=== PATIENT | female | born 1995 | race Caucasian/White ===

== ENCOUNTER → 2016-12-09 | Outpatient (REF) | payer OTHER ==
[~2016-12-09] MED LIST: TRAZ50TA4 PO; TRIL150T PO
== END ==
LOC: M LAB REF 13:39
PROVIDERS: ATTEND Advanced Practice Midwife
DX: O36.80X0 Pregnancy with inconclusive fetal viability, not applicable or unspecified (principal)

== ENCOUNTER 2017-02-08 19:19 | Emergency (ER) | payer OTHER ==
[~2017-02-08] VITALS: Ht 167.6 cm; Wt 81.6 kg
[2017-02-08] MEDS ORDERED: ZOLO50TA PO (19:33)
[2017-02-08] MEDS ORDERED: hydroxyzine PO (19:33)
[2017-02-08] MEDS ORDERED: TOPA100T8 PO (19:33)
[2017-02-08] MEDS ORDERED: NS 1,000 ML IV ONE (20:00)
[2017-02-08] MEDS ORDERED: IBUPROFEN 600 MG TAB PO ONE (20:00)
[2017-02-08 20:44] LABS: BASO % 0.1 % (0.0-1.0); EOS # 0.2 K/mm3 (0.0-0.50); EOS % 2.4 % (0.0-3.0); LARGE UNSTAINED CELL % 0.6 % (0.0-4.0); LYMPH # 0.7 K/mm3 (1.5-6.5); LYMPH % 9.7 % (24.0-44.0); MEAN CORPUSCULAR HEMOGLOBIN 28.4 pg (27.0-33.0); MEAN CORPUSCULAR HGB CONC 33.6 g/dl (32.0-36.5); MEAN CORPUSCULAR VOLUME 84.5 fl (80.0-96.0); MONO # 0.2 K/mm3 (0.0-0.8); MONO % 3.4 % (0.0-5.0); NEUTROPHILS # 5.9 K/mm3 (1.8-7.7); NEUTROPHILS % 83.7 % (36.0-66.0); PLATELET COUNT, AUTOMATED 255 k/mm3 (150-450); RED CELL DISTRIBUTION WIDTH 13.6 % (11.5-14.5)
[2017-02-08 21:03] LABS: CONTROL LINE HCG INT CTR LINE PRESENT; CONTROL LINE MONO INT CTR LINE PRESENT
[2017-02-08 21:12] LABS: ALBUMIN 3.4 GM/DL (3.2-5.2); ALBUMIN/GLOBULIN RATIO 1.26 (1.00-1.93); ALKALINE PHOSPHATASE 95 U/L (45-117); ALT/SGPT 20 U/L (12-78); ANION GAP 6 MEQ/L (8-16); AST/SGOT 13 U/L (15-37); BILIRUBIN,DIRECT 0.1 MG/DL (0.0-0.2); BILIRUBIN,TOTAL 0.4 MG/DL (0.2-1.0); BLOOD UREA NITROGEN 11 MG/DL (7-18); CALCIUM LEVEL 8.1 MG/DL (8.5-10.1); CARBON DIOXIDE LEVEL 26 MEQ/L (21-32); CHLORIDE LEVEL 105 MEQ/L (98-107); CREATININE FOR GFR 0.87 MG/DL (0.55-1.02); GLOMERULAR FILTRATION RATE > 60.0 (>60); GLUCOSE, FASTING 107 MG/DL (70-105); SODIUM LEVEL 137 MEQ/L (136-145); TOTAL PROTEIN 6.1 GM/DL (6.4-8.2)
[2017-02-08 21:32] VITALS: BP 105/65
== END 2017-02-08 21:33 | disposition home or self-care (01) ==
LOC: M ED 20:24
DX: M79.1 Myalgia (principal); K21.9 Gastro-esophageal reflux disease without esophagitis; F41.9 Anxiety disorder, unspecified; F31.9 Bipolar disorder, unspecified; Z79.899 Other long term (current) drug therapy

== ENCOUNTER 2017-08-02 12:37 | Emergency (ER) | payer OTHER ==
[~2017-08-02] VITALS: Ht 167.6 cm; Wt 73.2 kg
[~2017-08-02 12:37] MED LIST changes: +TOPA100T12 PO; +TRAZ50TA11 PO; -TRAZ50TA4 PO; +ZOLO50TA PO; +hydroxyzine PO
[2017-08-02 12:42] VITALS: BP 111/71
[2017-08-02] MEDS ORDERED: PRAZ2CAP PO (12:49)
[2017-08-02] MEDS ORDERED: LEVO0.1T PO (12:49)
[2017-08-02] MEDS ORDERED: LATU40TA PO (12:49)
[2017-08-02] MEDS ORDERED: TRAZ50TA11 PO (12:49)
[2017-08-02] MEDS ORDERED: LIDOCAINE 1% MDV 20ML VIAL As Ordered ONE (13:25)
[2017-08-02] MEDS ORDERED: cefTRIAXone SOD 250 MG VIAL (J0696) IM ONE (13:30)
[2017-08-02] MEDS ORDERED: AZITHROMYCIN 250 MG TAB PO ONE (13:30)
== END 2017-08-02 13:49 | disposition home or self-care (01) ==
LOC: M ED 12:37
DX: Z20.2 Contact with and (suspected) exposure to infections with a predominantly sexual mode of transmission (principal); Z79.899 Other long term (current) drug therapy
CPT/HCPCS: 87491; 87591; 96372; 99282; J0696

== ENCOUNTER 2017-10-03 18:33 | Emergency (ER) | payer OTHER ==
[~2017-10-03] VITALS: Ht 167.6 cm; Wt 90.9 kg
[2017-10-03 18:33] VITALS: BP 117/58
[~2017-10-03 18:33] MED LIST changes: +LATU40TA PO; +LEVO0.1T PO; +PRAZ2CAP PO
[2017-10-03] MEDS ORDERED: PERCOCET 5MG/325MG TAB PO ONE (19:30)
--- NOTE | 2017-10-03 20:50 | REPUSA ---
CLINICAL INFORMATION: Pain. TECHNIQUE: 4 views of the left foot. FINDINGS: The metatarsals remain aligned with the cuneiforms. There is no abnormal periosteal reaction. The isak nt spaces are preserved. No fracture is seen. The subtalar joints appear normal. The navicular and cu boid bones are intact as well. The soft tissues appear unremarkable. IMPRESSION: No fracture or significant abnormality is identified.
--- NOTE | 2017-10-03 20:50 | REPUSA ---
Clinical history: Pain. Findings: 4 views of the left tibia and fibula were obtained. The osseous structures are intact, with out evidence of fracture or dislocation. The soft tissues are within normal limits. Impression: No acute findings.
--- NOTE | 2017-10-03 20:50 | REPUSA ---
CLINICAL INFORMATION: Pain. TECHNIQUE: left ankle, 4 views. FINDINGS: The osseous structures do not demonstrate any fractures or dislocations. The ankle mortise is intact. The osseous alignment is normal. The visualized portions of the tarsal bones and hindfoot are within normal limits. The soft tissues are within normal limits. IMPRESSION: No acute abnormality.
[2017-10-03] MEDS ORDERED: NORCO 5/325MG TABLET (BULK FOR ED) PO ONE (21:15)
== END 2017-10-03 21:28 | disposition home or self-care (01) ==
LOC: M ED 19:39
DX: S90.02XA Contusion of left ankle, initial encounter (principal); Z72.0 Tobacco use; W00.0XXA Fall on same level due to ice and snow, initial encounter; Y92.099 Unspecified place in other non-institutional residence as the place of occurrence of the external cause; Y93.01 Activity, walking, marching and hiking; Y99.9 Unspecified external cause status

== ENCOUNTER 2019-08-01 10:26 | Emergency (ER) | payer OTHER, SELFPAY ==
[~2019-08-01] VITALS: Ht 167.6 cm; Wt 72.6 kg
[~2019-08-01 10:26] MED LIST changes: +TRAZ-252 PO; -TRAZ50TA11 PO
[2019-08-01 10:27] VITALS: BP 113/73
[2019-08-01] MEDS ORDERED: WELLTAB38 PO (10:33)
[2019-08-01] MEDS ORDERED: TRIL150T PO (10:34)
[2019-08-01] MEDS ORDERED: AUGM875T28 PO ×2 (10:49→10:51)
== END 2019-08-01 11:03 | disposition home or self-care (01) ==
LOC: M ED 10:26
DX: H66.91 Otitis media, unspecified, right ear (principal); Z79.899 Other long term (current) drug therapy

== ENCOUNTER 2019-08-28 22:59 | Emergency (ER) | payer MEDICAID, OTHER, SELFPAY ==
[~2019-08-28] VITALS: Ht 167.6 cm; Wt 75.1 kg
[~2019-08-28 22:59] MED LIST changes: +AUGM875T28 PO; +WELLTAB38 PO
[2019-08-28] MEDS ORDERED: QC A650T3 PO (23:10)
[2019-08-29 00:27] LABS: BASO % 0.4 % (0.0-1.0); EOS # 0.1 10^3/uL (0.0-0.5); EOS % 2.2 % (0.0-3.0); HEMATOCRIT 39.5 % (36.0-47.0); HEMOGLOBIN 12.7 g/dl (12.0-15.5); LYMPH # 1.6 10^3/uL (1.5-5.0); LYMPH % 31.7 % (24.0-44.0); MEAN CORPUSCULAR HEMOGLOBIN 28.8 pg (27.0-33.0); MEAN CORPUSCULAR HGB CONC 32.2 g/dl (32.0-36.5); MEAN CORPUSCULAR VOLUME 89.6 fl (80.0-96.0); MONO # 0.4 10^3/uL (0.0-0.8); MONO % 7.1 % (0.0-5.0); NEUTROPHILS # 2.9 10^3/uL (1.5-8.5); NEUTROPHILS % 58.4 % (36.0-66.0); PLATELET COUNT, AUTOMATED 211 10^3/uL (150-450); RED BLOOD COUNT 4.41 10^6/uL (4.00-5.40); WHITE BLOOD COUNT 4.9 10^3/uL (4.0-10.0)
[2019-08-29 00:42] LABS: ALBUMIN 3.1 GM/DL (3.2-5.2); ALT/SGPT 15 U/L (12-78); BILIRUBIN,DIRECT 0.1 MG/DL (0.0-0.2); BILIRUBIN,TOTAL 0.5 MG/DL (0.2-1.0); BLOOD UREA NITROGEN 10 MG/DL (7-18); CALCIUM LEVEL 8.2 MG/DL (8.5-10.1); CARBON DIOXIDE LEVEL 26 MEQ/L (21-32); CHLORIDE LEVEL 109 MEQ/L (98-107); CREATININE FOR GFR 0.89 MG/DL (0.55-1.30); GLOMERULAR FILTRATION RATE > 60.0 (>60); GLUCOSE, FASTING 93 MG/DL (70-100); LIPASE 78 U/L (73-393); POTASSIUM SERUM 3.6 MEQ/L (3.5-5.1); SODIUM LEVEL 140 MEQ/L (136-145); TOTAL PROTEIN 5.8 GM/DL (6.4-8.2)
[2019-08-29] MEDS ORDERED: KETOROLAC 30 MG/ML VIAL (J1885) IV ONE (00:45)
[2019-08-29] MEDS ORDERED: ISOVUE-370 76% 100ML VIAL (Q9967) As Ordered ONE (00:48)
--- NOTE | 2019-08-29 01:17 | REPVR ---
PROCEDURE INFORMATION: Exam: CT Abdomen And Pelvis With Contrast Exam date and time: 08/29/2019 12:44 AM Clinical history: 24 years old, female; Abdominal pain; Localized; Right lower quadrant (rlq); Additional info: Rlq pain, R/O appendicitis TECHNIQUE: Imaging protocol: Computed tomography of the abdomen and pelvis with intravenous contrast. Radiation optimization: All CT scans at this facility use at least one of these dose optimization techniques: automated exposure control; mA and/or kV adjustment per patient size (includes targeted exams where dose is matched to clinical indication); or iterative reconstruction. Contrast material: ISO; Contrast volume: 100 ml; Contrast route: AC; COMPARISON: US OBS SINGEL GEST 09/12/2015 7:44 PM FINDINGS: Liver: The liver attenuation is 73 Hounsfield units and the spleen is 116 Hounsfield units. Gallbladder and bile ducts: Status post cholecystectomy. Pancreas: Calcification in the pancreatic head near the ampulla measuring 3 x 5 mm. No pancreatic or biliary ductal dilatation is seen. Spleen: Normal. No splenomegaly. Adrenals: Normal. No mass. Kidneys and ureters: Normal. No hydronephrosis. Stomach and bowel: Slight wall thickening and mucosal enhancement of small bowel segments in the low pelvis centered to the right with induration of supplying mesentery consistent with enteritis. Appendix: A normal retrocecal appendix is seen measuring up to 7 mm. Intraperitoneal space: Mild free fluid in the cul-de-sac. Vasculature: Unremarkable. No abdominal aortic aneurysm. Lymph nodes: Unremarkable. No enlarged lymph nodes. Bladder: Unremarkable as visualized. Reproductive: Unremarkable as visualized. Bones/joints: Unremarkable. No acute fracture. Soft tissues: Unremarkable. IMPRESSION: 1. Enteritis involving small bowel segments in the low pelvis centered to the right of midline with induration of supplying mesentery. 2. Mild free fluid in the cul-de-sac which is likely reactive. 3. Status post cholecystectomy. 4. Fatty infiltration of the liver. 5. Calcification of the pancreatic head near the ampulla which may reflect residua of pancreatitis. 6. A normal retrocecal appendix is seen. Electronically signed by: Syed Yun On 08/29/2019 01:16:42 AM
[2019-08-29] MEDS ORDERED: METAL LOCK LOOP XX ONE (01:31)
[2019-08-29 01:58] VITALS: BP 98/60
== END 2019-08-29 01:59 | disposition home or self-care (01) ==
LOC: M ED 22:59
DX: K52.9 Noninfective gastroenteritis and colitis, unspecified (principal); K86.89 Other specified diseases of pancreas; K76.0 Fatty (change of) liver, not elsewhere classified; F31.9 Bipolar disorder, unspecified; K21.9 Gastro-esophageal reflux disease without esophagitis; Z79.899 Other long term (current) drug therapy
CPT/HCPCS: 74177; 80048; 80076; 81001; 83690; 84702; 85025; 96374; 99284; J1885; Q9967

== ENCOUNTER → 2019-11-15 | Outpatient (REF) | payer MEDICAID, OTHER ==
[~2019-11-15] MED LIST changes: +QC A650T3 PO
[2019-11-15 17:26] LABS: HEMATOCRIT 41.9 % (36.0-47.0); HEMOGLOBIN 13.3 g/dl (12.0-15.5); MEAN CORPUSCULAR HEMOGLOBIN 28.3 pg (27.0-33.0); MEAN CORPUSCULAR HGB CONC 31.7 g/dl (32.0-36.5); MEAN CORPUSCULAR VOLUME 89.1 fl (80.0-96.0); PLATELET COUNT, AUTOMATED 258 10^3/uL (150-450); WHITE BLOOD COUNT 6.3 10^3/uL (4.0-10.0)
[2019-11-15 17:38] LABS: HCG, SERUM QUANTITATIVE 36546 MIU/ML
[2019-11-16 10:54] LABS: RUBELLA IgG QUALITATIVE EQUIVOCAL (IMMUNE)
[2019-11-16 11:22] LABS: HEPATITIS C VIRUS ABY INDEX < 0.0 INDEX (<0.8)
[2019-11-16 11:23] LABS: HIV 1&2 SCREEN CENTAUR NEGATIVE (NEGATIVE)
== END ==
LOC: M LAB REF 16:34
PROVIDERS: ATTEND Obstetrics & Gynecology
DX: Z32.01 Encounter for pregnancy test, result positive (principal)

== ENCOUNTER 2019-12-26 06:17 | Emergency (ER) | payer MEDICAID, OTHER ==
[~2019-12-26] VITALS: Ht 167.6 cm; Wt 73.4 kg
[2019-12-26] MEDS ORDERED: NS 1,000 ML IV ONE (06:45)
[2019-12-26] MEDS ORDERED: MORPHINE 2 MG/ML 1ML VIAL (J2270) IV ONE (06:45)
[2019-12-26 07:03] LABS: BASO % 0.4 % (0.0-1.0); EOS # 0.1 10^3/uL (0.0-0.5); EOS % 0.9 % (0.0-3.0); HEMATOCRIT 37.8 % (36.0-47.0); HEMOGLOBIN 12.8 g/dl (12.0-15.5); LYMPH # 1.4 10^3/uL (1.5-5.0); LYMPH % 21.4 % (24.0-44.0); MEAN CORPUSCULAR HEMOGLOBIN 29.4 pg (27.0-33.0); MEAN CORPUSCULAR HGB CONC 33.9 g/dl (32.0-36.5); MEAN CORPUSCULAR VOLUME 86.7 fl (80.0-96.0); MONO # 0.3 10^3/uL (0.0-0.8); MONO % 4.6 % (0.0-5.0); NEUTROPHILS # 4.9 10^3/uL (1.5-8.5); NEUTROPHILS % 72.3 % (36.0-66.0); PLATELET COUNT, AUTOMATED 275 10^3/uL (150-450); RED BLOOD COUNT 4.36 10^6/uL (4.00-5.40); WHITE BLOOD COUNT 6.7 10^3/uL (4.0-10.0)
[2019-12-26 09:04] VITALS: BP 109/60
--- NOTE | 2019-12-26 09:49 | REP ---
REPEAT DICTATION LIMITED OBSTETRIC SONOGRAPHY: HISTORY: Vaginal spotting x 1 day. Preliminary report is provided at the time of exam by [facility]. FINDINGS: Scanning is requested to evaluate amniotic fluid level. A single living gestation is seen in a variable lie. heart rate is recorded at 144 beats per minute. An anterior placenta is seen without evidence of previa. Amniotic fluid is subjectively normal. There is a 1.9 cm hyperechoic area in the maternal left ovary. This is compatible with a corpus luteum. Electronically Signed by Johnny Ho MD 12/26/2019 04:46 P
== END 2019-12-26 09:25 | disposition home or self-care (01) ==
LOC: M ED 06:17
DX: O20.9 Hemorrhage in early pregnancy, unspecified (principal); O99.342 Other mental disorders complicating pregnancy, second trimester; F41.9 Anxiety disorder, unspecified; Z3A.15 15 weeks gestation of pregnancy
CPT/HCPCS: 76815; 84702; 85025; 86901; 96361; 96374; 99284; J2270

== ENCOUNTER 2020-02-29 20:12 | Outpatient (CLI) | payer OTHER ==
[~2020-02-29] VITALS: Ht 167.6 cm; Wt 83.1 kg
[2020-02-29 20:25] VITALS: BP 104/58
[2020-02-29] MEDS ORDERED: PRENTAB9 PO (20:29)
== END 2020-02-29 20:55 | disposition left against medical advice (07) ==
LOC: M LDO 20:12
PROVIDERS: ATTEND Advanced Practice Midwife
DX: O26.899 Other specified pregnancy related conditions, unspecified trimester (principal); M54.5 Low back pain; Z3A.00 Weeks of gestation of pregnancy not specified; Z53.21 Procedure and treatment not carried out due to patient leaving prior to being seen by health care provider

== ENCOUNTER → 2020-03-28 | Outpatient (CLI) | payer OTHER ==
[~2020-03-28] MED LIST changes: +PRENTAB9 PO
[2020-03-28 12:11] LABS: HEMATOCRIT 35.1 % (36.0-47.0); HEMOGLOBIN 11.6 g/dl (12.0-15.5); MEAN CORPUSCULAR HEMOGLOBIN 29.4 pg (27.0-33.0); MEAN CORPUSCULAR VOLUME 89.1 fl (80.0-96.0); PLATELET COUNT, AUTOMATED 227 10^3/uL (150-450); RED BLOOD COUNT 3.94 10^6/uL (4.00-5.40); WHITE BLOOD COUNT 6.5 10^3/uL (4.0-10.0)
== END ==
LOC: M LAB 10:39
PROVIDERS: ATTEND Obstetrics & Gynecology
DX: Z34.82 Encounter for supervision of other normal pregnancy, second trimester (principal)

== ENCOUNTER 2021-02-25 16:02 | Day surgery (SDC) | payer OTHER ==
[2021-02-25] MEDS ORDERED: METOCLOPRAMIDE INJ 10MG/2ML VIAL (J2765 PER 1) IV ONE ×2 (17:10→22:30)
[2021-02-25] MEDS ORDERED: NS 1,000 ML IV ONE (17:10)
[2021-02-25 18:14] LABS: BASO % 0.3 % (0.0-1.0); EOS % 0.7 % (0.0-3.0); HEMOGLOBIN 13.2 g/dl (12.0-15.5); LYMPH # 1.5 10^3/uL (1.5-5.0); LYMPH % 49.7 % (24.0-44.0); MEAN CORPUSCULAR HEMOGLOBIN 27.6 pg (27.0-33.0); MEAN CORPUSCULAR VOLUME 83.5 fl (80.0-96.0); MONO # 0.3 10^3/uL (0.0-0.8); MONO % 8.6 % (2.0-8.0); NEUTROPHILS # 1.2 10^3/uL (1.5-8.5); NEUTROPHILS % 40.4 % (36.0-66.0); PLATELET COUNT, AUTOMATED 207 10^3/uL (150-450); RED BLOOD COUNT 4.79 10^6/uL (4.00-5.40)
--- NOTE | 2021-02-25 18:26 | REP ---
INDICATION: pelvic pain into back, n/v/d. COMPARISON: None. TECHNIQUE: Real-time sonographic evaluation of pelvis performed utilizing transabdominal and endovaginal technique. FINDINGS: Uterus measures 7.0 x 4.4 x 5.7 cm. Uterus is retroverted. There is a sac-like structure in the endometrial canal 8 mm in diameter but there is no internal yolk sac or pole identified. The left ovary is not identified. The right ovary measures 2.9 x 1.7 x 1.7 cm with internal blood flow with duplex Doppler evaluation. Adjacent to the right ovary is a round hyperechoic structure with central fluid density measuring 1.9 x 2.5 x 2.1 cm. There is peripheral blood flow with Doppler evaluation. There is moderate adjacent free fluid in the right adnexa and cul-de-sac. IMPRESSION: Right adnexal mass with central fluid density 2.5 cm in maximum diameter, adjacent to the right ovary. Moderate free fluid. This is suspicious for ruptured ectopic . Sac-like structure in the endometrial canal 8 mm in diameter with no internal contents may represent a pseudo gestational sac, or potentially could represent a very early viable intrauterine gestation. Critical Findings: Findings suspicious for ruptured right ectopic . The critical information above was relayed directly by me by telephone to KAREN GARCIA on 02/25/2021 at 6:20 pm with readback verification. <Electronically signed by Kenney Vegas > 02/25/21 [id number]
[2021-02-25 18:37] LABS: AMPHETAMINES LEVEL URINE NEGATIVE (NEGATIVE); BARBITURATES URINE NEGATIVE (NEGATIVE); BENZODIAZEPINES URINE NEGATIVE (NEGATIVE); CANNABINOIDS URINE POSITIVE (NEGATIVE); COCAINE METABOLITE URINE NEGATIVE (NEGATIVE); METHADONE URINE NEGATIVE (NEGATIVE); OPIATES URINE NEGATIVE (NEGATIVE); PHENCYCLIDINE URINE NEGATIVE (NEGATIVE)
[2021-02-25 18:55] LABS: ALBUMIN 3.5 GM/DL (3.2-5.2); ALT/SGPT 25 U/L (12-78); BILIRUBIN,DIRECT < 0.1 MG/DL (0.0-0.2); BILIRUBIN,TOTAL 0.2 MG/DL (0.2-1.0); HCG, SERUM QUANTITATIVE 3995 MIU/ML; TOTAL PROTEIN 6.2 GM/DL (6.4-8.2)
[2021-02-25] MEDS ORDERED: BUPIVACAINE HCL 0.25% 30ML VIAL As Ordered ONE (19:27)
[2021-02-25] MEDS ORDERED: MIDAZOLAM INJ 2MG/2ML VIAL (J2250 PER 1MG) As Ordered ONE (19:33)
[2021-02-25] MEDS ORDERED: fentaNYL 100 MCG/2 ML INJECTION (J3010) As Ordered ONE ×2 (19:34→20:56)
[2021-02-25] MEDS ORDERED: SUCCINYLCHOLINE 100 MG/5 ML SYRINGE (J0330) As Ordered ONE (19:34)
[2021-02-25] MEDS ORDERED: LIDOCAINE 2% 100MG/5ML SDV (FOR ANES.) As Ordered ONE (19:34)
[2021-02-25] MEDS ORDERED: ROCURONIUM BROMIDE 50 MG/5 ML VIAL As Ordered ONE (19:34)
[2021-02-25] MEDS ORDERED: propofoL 200 MG/20 ML VIAL As Ordered ONE (19:34)
[2021-02-25] MEDS ORDERED: IBUP80TA PO (20:13)
[2021-02-25] MEDS ORDERED: PERC5TAB12 PO (20:18)
[2021-02-25] MEDS ORDERED: PHENYLephrine 500MCG 5ML (100MCG/ML) SYRINGE As Ordered ONE (20:44)
[2021-02-25] MEDS ORDERED: ONDANSETRON 4MG/2ML VIAL As Ordered ONE ×2 (21:04→21:43)
[2021-02-25] MEDS ORDERED: SUGAMMADEX SODIUM 500 MG/5 ML VIAL (BRIDION) As Ordered ONE (21:04)
[2021-02-25] MEDS ORDERED: dexameTHASONE 4 MG/ML 1ML VIAL (J1100 PER 1MG) As Ordered ONE (21:04)
[2021-02-25] MEDS ORDERED: NEOSTIGMINE 10MG/10ML VIAL (J2710 PER 0.5MG) As Ordered ONE (21:06)
[2021-02-25] MEDS ORDERED: GLYCOPYRROLATE INJ 0.2 MG/ML 2 ML VIAL As Ordered ONE ×2 (21:06→21:07)
[2021-02-25] MEDS ORDERED: LR 1,000 ML IV SCH (21:30)
[2021-02-25] MEDS ORDERED: oxyCODONE 5MG TAB PO PRN (21:30)
[2021-02-25] MEDS ORDERED: fentaNYL 100 MCG/2 ML INJECTION (J3010) IV PRN (21:30)
[2021-02-25] MEDS: ONDANSETRON 4MG/2ML VIAL IV PRN (21:53)
[2021-02-25] MEDS ORDERED: PERCOCET 5MG/325MG TAB PO PRN (22:10)
[2021-02-25] MEDS ORDERED: KETOROLAC 30 MG/ML 1ML VIAL IV PRN (22:15)
[2021-02-25] MEDS ORDERED: ACETAMINOPHEN 500 MG TAB PO ONE (22:30)
[2021-02-25 22:55] VITALS: BP 100/50
--- NOTE | 2021-03-11 20:15 | ROOPDOC ---
[facility] Report Of Operation Report of Operation DATE OF PROCEDURE: 02/25/21 PREOPERATIVE DIAGNOSIS:Suspected ectopic . POSTOPERATIVE DIAGNOSIS: Right paratubal cyst. PROCEDURE PERFORMED: 1. Diagnostic and operative laparoscopy with drainage of right paratubal cyst SURGEON: La Vickers MD CLINICAL STAFF PHARMACIST: none ANESTHESIA: General endotracheal anesthesia. SPECIMENS: none ESTIMATED BLOOD LOSS: 5 mL. IV FLUIDS: 1200 mL of Lactated Ringer's solution. URINE OUTPUT: 300 mL. INDICATION FOR OPERATION: Mrs. Henley is a 25-year-old 5 para 2 who pr esented at 7 weeks by last period of February 03 2021. She reports being seen at [facility] for this current at approximately 4 weeks. She reports having multiple positive test. On day of presentation, patient began to experience acute onset of pelvic pain much greater on the right side. She denies any vaginal bleeding fever, chills. On arrival to emergency department she was noted to have a acute abdomen with positive rebound and guarding. Ultrasound read as a 2.5cm mass adjacent to right ovary with moderate free fluid suspiciousfor ruptured ectopic . 8mm endometrial canal pseudosac vs early gestation. Her hCG quantitative values returned at 3995. Patient was counseled on the above findings with concerns for ruptured ectopic . I discussed conservative option for inpatient monitoring vitals and repeat labs versus proceeding with a diagnostic operative laparoscopy with possible salpingectomy or salpingostomy. Consultation patient desired to proceed with diagnostic operative laparoscopy. OPERATIVE FINDINGS: Approximately 2 cm right paratubal cysts at the fimbria. Otherwise normal-appearing bilateral adnexa including fallopian tubes and ovary normal-appearing uterus. No evidence of an ectopic . moderate amount of serous fluid in the posterior cul-de-sac. Was a unable to visualize the appendix. Normal-appearing liver edge. PREOPERATIVE ANTIBIOTICS: None. DESCRIPTION OF OPERATION: After informed consent was obtained and written consent was reviewed, the patient was brought to the operating room where she was placed under general endotracheal anesthesia. She was then placed in lithotomy position, was prepped and draped in the normal sterile fashion. A time out in the operating room was then performed identifying the patient, procedure be performed as well as drug allergies. A Bui catheter was then placed and set to gravity. Sponge stick was placed in the vagina for uterine manipulation. Gloves where changed and attention was then turned to the patient's abdomen where 0.25% Marcaine was infused in the umbilical region. This area was incised, an 11 mm trocar and sleeve was advanced through this incision. A laparoscope was then placed revealing intra-abdominal placement and pneumoperitoneum was then obtained with CO2 gas. Two additional port sites were placed on each side of the umbilicus. These areas were infused 0.25% Marcaine. An incision was made in each one of these areas and 5 mm trocar and sleeves was advanced through each one of these incisions under direct visualization. Next, the abdomen was then surveyed with the above noted findings. The abdomen was then suctioned. Next, using the Harmonic gala device, the right para tubal cyst which opened and drained. Surgical calderon were inspected and noted be hemostatic. Instruments were then removed. The pneumoperitoneum was then released. The skin incisions of all three port sites were closed with #4-0 Monocryl and dressed with DERMABOND. The Bui catheter was then removed. The patient was then taken out of lithotomy position, was awakened from general anesthesia, and taken to recovery in stable condition. Counts correct. LA VICKERS MD. March 11, 2021 20:15
== END 2021-02-25 22:55 | disposition home or self-care (01) ==
LOC: M ED 16:02 → M SDC 16:03 → M ED 20:19 → M SDC 22:55
PROVIDERS: ATTEND Obstetrics & Gynecology
DX: O98.511 Other viral diseases complicating pregnancy, first trimester (principal); U07.1 COVID-19; O34.81 Maternal care for other abnormalities of pelvic organs, first trimester; N83.8 Other noninflammatory disorders of ovary, fallopian tube and broad ligament; Z3A.01 Less than 8 weeks gestation of pregnancy; O99.341 Other mental disorders complicating pregnancy, first trimester; F31.9 Bipolar disorder, unspecified; F15.10 Other stimulant abuse, uncomplicated; Z87.19 Personal history of other diseases of the digestive system; O99.321 Drug use complicating pregnancy, first trimester; F12.20 Cannabis dependence, uncomplicated
CPT/HCPCS: 49322; 76801; 76817; 80047; 80076; 80307; 81001; 84702; 85025; 86850; 86900; 86901; 87798; 96361; 96374; 99284; J0330; J1100; J2250; J2370; J2405; J2710; J2765; J3010

== ENCOUNTER → 2021-03-26 | Outpatient (CLI) | payer OTHER ==
[~2021-03-26] MED LIST changes: +IBUP80TA PO; +PERC5TAB12 PO
== END ==
LOC: M PLALAB 09:55
PROVIDERS: ATTEND Obstetrics & Gynecology
DX: Z34.81 Encounter for supervision of other normal pregnancy, first trimester (principal)

== ENCOUNTER → 2021-04-09 | Outpatient (REF) | payer OTHER ==
[2021-04-09 15:42] LABS: HEMOGLOBIN 12.1 g/dl (12.0-15.5); MEAN CORPUSCULAR HEMOGLOBIN 28.6 pg (27.0-33.0); MEAN CORPUSCULAR HGB CONC 32.7 g/dl (32.0-36.5); MEAN CORPUSCULAR VOLUME 87.5 fl (80.0-96.0); PLATELET COUNT, AUTOMATED 285 10^3/uL (150-450); RED BLOOD COUNT 4.23 10^6/uL (4.00-5.40); WHITE BLOOD COUNT 5.9 10^3/uL (4.0-10.0)
[2021-04-09 20:31] LABS: HEPATITIS C VIRUS ABY INDEX < 0.0 INDEX (<0.8); HIV 1&2 SCREEN CENTAUR NEGATIVE (NEGATIVE)
== END ==
LOC: M PLALAB 13:48
PROVIDERS: ATTEND Advanced Practice Midwife
DX: Z36.89 Encounter for other specified antenatal screening (principal); Z3A.10 10 weeks gestation of pregnancy

== ENCOUNTER → 2021-06-04 | Outpatient (CLI) | payer OTHER ==
--- NOTE | 2021-06-04 19:45 | REP ---
INDICATION: ANATOMY/PLACENTAL LOCATION COMPARISON: 02/25/2021 TECHNIQUE: Transabdominal obstetrical ultrasound with color Doppler evaluation. FINDINGS: Examination demonstrates a single live intrauterine in variable presentation. motion is identified by technologist. Placenta is noted anterior and grade 0 without evidence for placenta previa or abruption. Amniotic fluid volume is normal. Cervix measures 3.5 cm in length and appears closed.. Selected gestational age: 20 weeks 0 days with TIMOTHY 10/22/2021. Gestational age by current measurements 20 weeks 1 day with TIMOTHY 10/21/2021. FHR equals 142 beats per minute. BPD: 4.7 cm at 20 weeks 2 days HC: 17.5 cm at 20 weeks 0 days AC: 14.8 cm at 20 weeks 0 days FL: 3.1 cm at 19 weeks 5 days HL: 3.2 cm at 20 weeks 5 days HC/AC: 1.19 Estimated weight 321 grams (41stpercentile). Anatomical assessment demonstrates normal structures including cranium, choroid plexus, cavum, cerebellum/posterior fossa, facial features, lungs, four-chamber heart/ventricular outflow tracts, diaphragm, stomach, cord insertion/three-vessel cord, kidneys/bladder, spine, and extremities. IMPRESSION: Single live intrauterine in variable presentation demonstrating appropriate interval growth. Anatomical assessment is complete and normal. <Electronically signed by Jesse Masterson > 06/04/211940
== END ==
LOC: M WHC 13:58
PROVIDERS: ATTEND Advanced Practice Midwife
DX: Z36.89 Encounter for other specified antenatal screening (principal); Z3A.17 17 weeks gestation of pregnancy

== ENCOUNTER → 2021-07-06 | Outpatient (REF) | payer OTHER ==
[~2021-07-06] MED LIST changes: +ACET325C5 PO; +IBUP-1022 PO; -LATU40TA PO; +LATU40TA2 PO; +PREN1CHW4 PO; +ZOLO25TA PO
== END ==
LOC: M LAB REF 17:05
PROVIDERS: ATTEND Advanced Practice Midwife
DX: R10.2 Pelvic and perineal pain (principal)

== ENCOUNTER → 2021-07-15 | Outpatient (CLI) | payer OTHER ==
[~2021-07-15] MED LIST changes: -ACET325C5 PO; -IBUP-1022 PO; +LATU40TA PO; -LATU40TA2 PO; -PREN1CHW4 PO; -ZOLO25TA PO
[2021-07-15 16:18] LABS: HEMATOCRIT 34.7 % (36.0-47.0); HEMOGLOBIN 11.1 g/dl (12.0-15.5); MEAN CORPUSCULAR HEMOGLOBIN 27.8 pg (27.0-33.0); MEAN CORPUSCULAR VOLUME 86.8 fl (80.0-96.0); PLATELET COUNT, AUTOMATED 267 10^3/uL (150-450); WHITE BLOOD COUNT 6.1 10^3/uL (4.0-10.0)
== END ==
LOC: M WUC 10:20
PROVIDERS: ATTEND Advanced Practice Midwife
DX: Z34.82 Encounter for supervision of other normal pregnancy, second trimester (principal)

== ENCOUNTER 2021-09-19 18:30 | Outpatient (CLI) | payer OTHER ==
[~2021-09-19] VITALS: Ht 167.6 cm; Wt 91.0 kg
[2021-09-19 18:48] VITALS: BP 100/69
[2021-09-19] MEDS ORDERED: PREN1CHW4 PO (18:51)
[2021-09-19] MEDS ORDERED: ZOLO25TA PO (18:51)
[2021-09-19] MEDS ORDERED: ACET325C5 PO (18:51)
[2021-09-19] MEDS ORDERED: HOME MED LIST COMPLETE! XX SCH (18:55)
[2021-09-19] MEDS ORDERED: CYCLOBENZAPRINE 10MG TABLET PO ONE (19:20)
[2021-09-19] MEDS ORDERED: PERCOCET 5MG/325MG TAB PO ONE (19:20)
--- NOTE | 2021-09-19 20:32 | IPNPDOC ---
Text Note Date of Service The patient was seen on 09/19/21. NOTE 26 yo at 35 weeks presents with right sided low pack that started today. It became severe. She feels vaginal pressure. No bleeding. O: AVSS NAD Abd: NT, gravid, soft FHT: Cat. I toco: none SVE: cx L/C/P tenderness over sacroiliac joint A/P 26 yo at 35 weeks with sacroiliitis Pt given single dose of Percocet, as well as Flexeril Pain improved Recommend heating pad/Tylenol at home fu office 09/22/ as scheduled VS,Fishbone, I+O VS, Fishbone, I+O Vital Signs Date Time Temp Pulse Resp B/P (MAP) Pulse Ox O2 Delivery O2 Flow Rate FiO2 09/19/21 20:25 97.9 17 09/19/21 18:48 83 100/69 (79) DG DAVENPORT MD Sep 19, 2021 20:32
== END 2021-09-19 20:24 | disposition home or self-care (01) ==
LOC: M LDO 18:30
PROVIDERS: ATTEND Specialist
DX: O47.03 False labor before 37 completed weeks of gestation, third trimester (principal); O26.893 Other specified pregnancy related conditions, third trimester; R10.2 Pelvic and perineal pain; O99.419 Diseases of the circulatory system complicating pregnancy, unspecified trimester; M46.1 Sacroiliitis, not elsewhere classified; Z3A.35 35 weeks gestation of pregnancy

== ENCOUNTER → 2021-09-22 | Outpatient (REF) | payer OTHER ==
[~2021-09-22] MED LIST changes: +ACET325C5 PO; +IBUP-1022 PO; -LATU40TA PO; +LATU40TA2 PO; +PREN1CHW4 PO; +ZOLO25TA PO
== END ==
LOC: M SFHCWAGY 13:04
PROVIDERS: ATTEND Specialist
DX: Z34.83 Encounter for supervision of other normal pregnancy, third trimester (principal)

== ENCOUNTER → 2021-09-29 | Outpatient (CLI) | payer OTHER | LOC: M WHC 12:25 | PROVIDERS: ATTEND Specialist | DX: Z34.83 Encounter for supervision of other normal pregnancy, third trimester (principal); Z3A.37 37 weeks gestation of pregnancy ==

== ENCOUNTER → 2021-10-08 | Outpatient (REF) ==
[~2021-10-08] MED LIST changes: -IBUP-1022 PO; +LATU40TA PO; -LATU40TA2 PO
== END ==
LOC: M LABSMTC 13:39
PROVIDERS: ATTEND Pediatrics
DX: Z11.52 Encounter for screening for COVID-19 (principal); Z20.822 Contact with and (suspected) exposure to COVID-19

== ENCOUNTER 2021-10-17 14:59 | Inpatient (IN) | payer OTHER ==
[~2021-10-17] VITALS: Ht 167.6 cm; Wt 95.3 kg
[2021-10-17 15:25] VITALS: BP 130/74
[2021-10-17] MEDS ORDERED: METHYLERGONOVINE MALEATE 0.2 MG/ML VIAL (J2210) IM PRN (15:55)
[2021-10-17] MEDS ORDERED: OXYTOCIN DRIP 30 UNITS in IV 1 EA IV PRN ×4 (15:55)
[2021-10-17] MEDS ORDERED: TRANEXAMIC ACID INJection 1,000 MG in NS 100 ML IV PRN (15:55)
[2021-10-17] MEDS ORDERED: CARBOPROST TROMETHAMINE 250 MCG/ML AMP IM PRN (15:55)
[2021-10-17] MEDS ORDERED: LACTATED RINGER'S 1000 ML IV PRN (15:55)
[2021-10-17] MEDS ORDERED: miSOPROStol 50MCG 1/2 TABLET PO ONE ×2 (16:20→20:45)
[2021-10-17 16:33] LABS: HEMATOCRIT 30.6 % (36.0-47.0); HEMOGLOBIN 9.5 g/dl (12.0-15.5); MEAN CORPUSCULAR HEMOGLOBIN 23.6 pg (27.0-33.0); MEAN CORPUSCULAR VOLUME 75.9 fl (80.0-96.0); PLATELET COUNT, AUTOMATED 260 10^3/uL (150-450); RED BLOOD COUNT 4.03 10^6/uL (4.00-5.40); WHITE BLOOD COUNT 8.6 10^3/uL (4.0-10.0)
[2021-10-17] MEDS: LR 1,000 ML IV SCH ×2 (16:40→22:51)
[2021-10-17 17:25] VITALS: BP 119/80
[2021-10-17 18:05] VITALS: BP 122/78
[2021-10-17 20:06] VITALS: BP 133/82
[2021-10-17] MEDS ORDERED: PENICILLIN G POTASSIUM IV 5 MU in D5W MINI-BAG PLUS 100 ML IV STA (20:49)
[2021-10-17] MEDS ORDERED: miSOPROStol 25MCG 1/4 TABLET PO ONE (20:50)
[2021-10-17 21:14] VITALS: BP 119/68
[2021-10-17 23:51] VITALS: BP 114/56
[2021-10-18] VITALS (34 sets, daily range): BP systolic 102–137; BP diastolic 55–90
[2021-10-18] MEDS: PENICILLIN G POTASSIUM IV 2.5 MU in IV 1 EA IV SCH ×2 (01:11→05:09)
[2021-10-18] MEDS ORDERED: OXYTOCIN DRIP 30 UNITS in IV 1 EA IV SCH (01:55)
[2021-10-18] MEDS ORDERED: FENTANYL 2MCG/ML ROPIVACAINE 0.2% IN 0.9% NACL 100ML IVBAG As Ordered ONE (03:17)
[2021-10-18] MEDS ORDERED: EPIDURAL/PCA KEYS XX PRN (03:25)
[2021-10-18] MEDS ORDERED: REFRIGERATOR IV KEYS XX PRN (03:25)
[2021-10-18] MEDS ORDERED: diphenhydrAMINE 50MG/ML VIAL (J1200) IV PRN (03:25)
[2021-10-18] MEDS ORDERED: ONDANSETRON 4MG/2ML VIAL IV PRN (03:25)
[2021-10-18] MEDS ORDERED: FENTANYL/ROPIVACAINE/NACL BAG 100 ML EPIDURAL SCH (03:25)
[2021-10-18] MEDS ORDERED: NALOXONE INJ 0.4MG/1ML VIAL (J2310 PER 1MG) IV PRN (03:25)
[2021-10-18] MEDS ORDERED: EPIDURAL COMMENT XX SCH (03:25)
[2021-10-18] MEDS ORDERED: LACTATED RINGER'S 1000 ML IV PRN (03:25)
[2021-10-18] MEDS: ePHEDrine SULFATE 25 MG/5 ML(5MG/ML) SYRINGE IV PRN ×3 (05:04→05:34)
[2021-10-18] MEDS ORDERED: RHOGAM 300 MCG (1500 IU) INJ (J2790) IM SCH (07:30)
[2021-10-18] MEDS ORDERED: DOCUSATE SODIUM 100MG CAPSULE PO PRN (07:30)
[2021-10-18] MEDS ORDERED: IBUPROFEN 600MG TAB PO PRN (07:30)
[2021-10-18] MEDS ORDERED: MEASLES,MUMPS,RUBELLA VACCINE INJ (MMR-II) (90707) SC SCH (07:30)
[2021-10-18] MEDS ORDERED: DIBUCAINE 1% OINTMENT 30GM TOP PRN (07:30)
[2021-10-18] MEDS ORDERED: METHYLERGONOVINE MALEATE 0.2 MG TAB PO PRN (07:30)
[2021-10-18] MEDS ORDERED: OXYTOCIN 30 UNITS IN 0.9% NaCl 500ML IV BAG (J2590) As Ordered ONE (07:55)
[2021-10-18] MEDS: SERTRALINE HCL 25 MG TABLET PO SCH (10:04)
[2021-10-18] MEDS: PRENATAL VITAMINS CHEWABLE TABLET PO SCH (10:04)
[2021-10-18] MEDS: ACETAMINOPHEN 500 MG TAB PO PRN (19:03)
[2021-10-19] MEDS: ACETAMINOPHEN 500 MG TAB PO PRN (03:17)
[2021-10-19 06:00] VITALS: BP 106/59
[2021-10-19 08:03] LABS: HEMATOCRIT 28.9 % (36.0-47.0); MEAN CORPUSCULAR HEMOGLOBIN 23.9 pg (27.0-33.0); MEAN CORPUSCULAR HGB CONC 31.1 g/dl (32.0-36.5); MEAN CORPUSCULAR VOLUME 76.7 fl (80.0-96.0); PLATELET COUNT, AUTOMATED 236 10^3/uL (150-450); RED BLOOD COUNT 3.77 10^6/uL (4.00-5.40)
[2021-10-19] MEDS: SERTRALINE HCL 25 MG TABLET PO SCH (08:47)
[2021-10-19] MEDS: PRENATAL VITAMINS CHEWABLE TABLET PO SCH (08:47)
[2021-10-19 18:00] VITALS: BP 121/74
[2021-10-20 06:26] VITALS: BP 108/58
[2021-10-20] MEDS ORDERED: IBUP-1022 PO (06:39)
[2021-10-20] MEDS: PRENATAL VITAMINS CHEWABLE TABLET PO SCH (08:25)
[2021-10-20] MEDS: SERTRALINE HCL 25 MG TABLET PO SCH (08:25)
== END 2021-10-20 12:07 | disposition home or self-care (01) | DRG 560 ==
LOC: M LDI 14:59 → M OBS 10-18 10:00
PROVIDERS: ADMIT Obstetrics & Gynecology; ATTEND Obstetrics & Gynecology
PROC: 3E0P7GC Introduction of Other Therapeutic Substance into Female Reproductive, Via Natural or Artificial Opening (ICD-10-PCS; 2021-10-17)
PROC: 10E0XZZ Delivery of Products of Conception, External Approach (ICD-10-PCS; principal; 2021-10-18)
DX: O99.344 Other mental disorders complicating childbirth (principal); F32.A Depression, unspecified; O99.824 Streptococcus B carrier state complicating childbirth; Z3A.39 39 weeks gestation of pregnancy; Z37.0 Single live birth

== ENCOUNTER → 2022-05-28 | Outpatient (REF) | payer OTHER ==
[~2022-05-28] MED LIST changes: +IBUP-1022 PO; -LATU40TA PO; +LATU40TA2 PO
== END ==
LOC: M PLALAB 16:19
PROVIDERS: ATTEND Obstetrics & Gynecology
DX: Z11.3 Encounter for screening for infections with a predominantly sexual mode of transmission (principal); Z53.9 Procedure and treatment not carried out, unspecified reason

== ENCOUNTER → 2022-05-31 | Outpatient (CLI) | payer OTHER ==
[2022-05-31 13:13] LABS: HEPATITIS B CORE ANTIBODY IGM NEGATIVE (NEGATIVE); HEPATITIS B SURFACE ANTIGEN NEGATIVE (NEGATIVE); HEPATITIS C VIRUS ABY INDEX < 0.0 INDEX (<0.8); HIV 1&2 SCREEN CENTAUR NEGATIVE (NEGATIVE)
== END ==
LOC: M PLALAB 08:39
PROVIDERS: ATTEND Obstetrics & Gynecology
DX: Z11.3 Encounter for screening for infections with a predominantly sexual mode of transmission (principal)

== ENCOUNTER 2022-11-28 20:35 | Emergency (ER) | payer OTHER ==
[~2022-11-28] VITALS: Ht 167.6 cm; Wt 75.1 kg
[2022-11-28 20:36] VITALS: BP 114/64
[2022-11-28 21:06] LABS: BASO % 0.5 % (0.0-1.0); EOS # 0.1 10^3/uL (0.0-0.5); EOS % 1.6 % (0.0-3.0); HEMATOCRIT 39.2 % (36.0-47.0); HEMOGLOBIN 12.6 g/dl (12.0-15.5); LYMPH % 36.3 % (24.0-44.0); MEAN CORPUSCULAR HEMOGLOBIN 26.4 pg (27.0-33.0); MEAN CORPUSCULAR HGB CONC 32.1 g/dl (32.0-36.5); MEAN CORPUSCULAR VOLUME 82.2 fl (80.0-96.0); MONO # 0.5 10^3/uL (0.0-0.8); MONO % 9.3 % (2.0-8.0); NEUTROPHILS # 2.8 10^3/uL (1.5-8.5); NEUTROPHILS % 51.9 % (36.0-66.0); PLATELET COUNT, AUTOMATED 294 10^3/uL (150-450); RED BLOOD COUNT 4.77 10^6/uL (4.00-5.40); WHITE BLOOD COUNT 5.5 10^3/uL (4.0-10.0)
[2022-11-28 21:39] LABS: BLOOD UREA NITROGEN 13 MG/DL (9-23); CALCIUM LEVEL 8.7 MG/DL (8.5-10.1); CARBON DIOXIDE LEVEL 29 MMOL/L (20-31); CHLORIDE LEVEL 106 MMOL/L (98-107); CREATININE FOR GFR 0.92 MG/DL (0.55-1.30); GLOMERULAR FILTRATION RATE > 60.0 (>60); GLUCOSE, FASTING 98 MG/DL (60-100); POTASSIUM SERUM 3.7 MMOL/L (3.5-5.1); SODIUM LEVEL 142 MMOL/L (136-145)
[2022-11-28 21:42] LABS: HCG, SERUM QUALITATIVE NEGATIVE (NEGATIVE)
== END 2022-11-28 23:15 | disposition left against medical advice (07) ==
LOC: M ED 20:35
DX: Z53.21 Procedure and treatment not carried out due to patient leaving prior to being seen by health care provider (principal)

== ENCOUNTER → 2023-03-05 | Outpatient (REF) | payer OTHER ==
[2023-03-05 19:15] LABS: URINE PREG TEST NEGATIVE (NEGATIVE)
[2023-03-05 19:20] LABS: AMORPHOUS SEDIMENT LARGE (NEGATIVE); APPEARANCE, URINE TURBID (CLEAR); BACTERIA, URINE AUTO NEGATIVE (NEGATIVE); BILIRUBIN, URINE AUTO NEGATIVE (NEGATIVE); BLOOD, URINE BLOOD NEGATIVE (NEGATIVE); COLOR, URINE AMBER (YELLOW); GLUCOSE, URINE (UA) AUTO NEGATIVE (NEGATIVE); KETONE, URINE AUTO 1+ mg/dL (NEGATIVE); LEUKOCYTE ESTERASE, URINE AUTO NEGATIVE (NEGATIVE); MUCUS, URINE SMALL (NEGATIVE); NITRITE, URINE AUTO NEGATIVE (NEGATIVE); PROTEIN, URINE AUTO 2+ mg/dL (NEGATIVE); RBC, URINE AUTO 0 /HPF (0-3); SPECIFIC GRAVITY URINE AUTO 1.025 (1.002-1.035); SQUAMOUS EPITHELIAL CELL UR AU 6 /HPF (0-6); UROBILINOGEN, URINE AUTO 0.2 mg/dL (0.0-2.0); WBC, URINE AUTO 0 /HPF (0-3)
== END ==
LOC: M LAB REF 19:07
PROVIDERS: ATTEND Physician Assistant
DX: N91.2 Amenorrhea, unspecified (principal)

== ENCOUNTER → 2024-05-04 | Outpatient (CLI) | payer OTHER | LOC: M OUTALCOH 14:23 | PROVIDERS: ATTEND Psychiatry & Neurology Psychiatry | DX: F12.10 Cannabis abuse, uncomplicated (principal); F17.200 Nicotine dependence, unspecified, uncomplicated ==

== ENCOUNTER 2024-05-14 08:55 | Outpatient (RCR) | payer OTHER | END 2024-05-16 | LOC: M OUTALCOH 08:55 | PROVIDERS: ATTEND Psychiatry & Neurology Psychiatry | DX: F12.10 Cannabis abuse, uncomplicated (principal); F17.200 Nicotine dependence, unspecified, uncomplicated ==

== ENCOUNTER → 2024-07-04 | Outpatient (REF) | payer OTHER ==
[2024-07-04 14:11] LABS: BASO % 0.7 % (0.0-1.0); EOS # 0.2 10^3/uL (0.0-0.5); EOS % 3.2 % (0.0-3.0); HEMATOCRIT 40.4 % (36.0-47.0); HEMOGLOBIN 13.2 g/dl (12.0-15.5); LYMPH # 1.9 10^3/uL (1.5-5.0); LYMPH % 34.4 % (24.0-44.0); MEAN CORPUSCULAR HEMOGLOBIN 28.3 pg (27.0-33.0); MEAN CORPUSCULAR HGB CONC 32.7 g/dl (32.0-36.5); MEAN CORPUSCULAR VOLUME 86.7 fl (80.0-96.0); MONO # 0.4 10^3/uL (0.0-0.8); MONO % 6.4 % (2.0-8.0); NEUTROPHILS # 3.1 10^3/uL (1.5-8.5); NEUTROPHILS % 54.8 % (36.0-66.0); PLATELET COUNT, AUTOMATED 315 10^3/uL (150-450); RED BLOOD COUNT 4.66 10^6/uL (4.00-5.40); WHITE BLOOD COUNT 5.6 10^3/uL (4.0-10.0)
[2024-07-04 14:32] LABS: ALBUMIN 3.5 G/DL (3.2-5.2); ALKALINE PHOSPHATASE 100 U/L (46-116); ALT/SGPT 19 U/L (7.0-40); AST/SGOT 16 U/L (<34); BILIRUBIN,TOTAL 0.2 MG/DL (0.3-1.2); BLOOD UREA NITROGEN 13 MG/DL (9-23); CALCIUM LEVEL 8.8 MG/DL (8.5-10.1); CARBON DIOXIDE LEVEL 30 MMOL/L (20-31); CHLORIDE LEVEL 107 MMOL/L (98-107); CHOLESTEROL LEVEL 156 MG/DL (<200); CHOLESTEROL RISK RATIO 2.94 (<5); CREATININE FOR GFR 0.86 MG/DL (0.55-1.30); GLOMERULAR FILTRATION RATE > 60.0 (>60); GLUCOSE, FASTING 100 MG/DL (60-100); HDL CHOLESTEROL 52.9 MG/DL (>40); LDL CHOLESTEROL 89.5 MG/DL (<100); MAGNESIUM LEVEL 1.9 MG/DL (1.8-2.4); NON-HDL-C 103.1 MG/DL; POTASSIUM SERUM 3.9 MMOL/L (3.5-5.1); SODIUM LEVEL 139 MMOL/L (136-145); TOTAL PROTEIN 6.4 G/DL (5.7-8.2); TRIGLYCERIDES LEVEL 68 MG/DL (<150)
[2024-07-04 14:35] LABS: THYROID STIMULATING HORMONE 1.526 uIU/ML (0.55-4.78); TOTAL 25(OH) VITAMIN D 24.2 NG/ML (20.0-100.0)
== END ==
LOC: M LAB REF 12:14
PROVIDERS: ATTEND Nurse Practitioner Family
DX: E66.3 Overweight (principal); E55.9 Vitamin D deficiency, unspecified

== ENCOUNTER → 2024-11-05 | Outpatient (REF) | payer OTHER ==
[2024-11-06 14:26] LABS: Trichomonas vaginalis (AMP) NOT DETECTED (NEGATIVE)
[2024-11-06 14:49] LABS: GC DNA AMPLIFICATION NEGATIVE (NEGATIVE)
== END ==
LOC: M LAB REF 12:36
PROVIDERS: ATTEND Nurse Practitioner Family
DX: R39.9 Unspecified symptoms and signs involving the genitourinary system (principal); Z11.3 Encounter for screening for infections with a predominantly sexual mode of transmission

== ENCOUNTER → 2024-12-31 | Outpatient (REF) | payer OTHER ==
[2024-12-31 15:53] LABS: BASO % 0.7 % (0.0-1.0); EOS # 0.2 10^3/uL (0.0-0.5); EOS % 3.1 % (0.0-3.0); HEMATOCRIT 41.5 % (36.0-47.0); HEMOGLOBIN 13.6 g/dl (12.0-15.5); LYMPH # 1.8 10^3/uL (1.5-5.0); LYMPH % 28.8 % (24.0-44.0); MEAN CORPUSCULAR HEMOGLOBIN 28.3 pg (27.0-33.0); MEAN CORPUSCULAR HGB CONC 32.8 g/dl (32.0-36.5); MEAN CORPUSCULAR VOLUME 86.5 fl (80.0-96.0); MONO # 0.4 10^3/uL (0.0-0.8); MONO % 7.2 % (2.0-8.0); NEUTROPHILS # 3.7 10^3/uL (1.5-8.5); PLATELET COUNT, AUTOMATED 289 10^3/uL (150-450); WHITE BLOOD COUNT 6.1 10^3/uL (4.0-10.0)
[2024-12-31 16:13] LABS: HEMOGLOBIN A1c 4.9 % (4.0-6.0)
[2024-12-31 16:25] LABS: ALBUMIN 3.7 G/DL (3.2-5.2); ALKALINE PHOSPHATASE 92 U/L (35-104); ALT/SGPT 28 U/L (7.0-40); AST/SGOT 25 U/L (<34); BILIRUBIN,TOTAL 0.9 MG/DL (0.3-1.2); BLOOD UREA NITROGEN 15 MG/DL (9-23); CALCIUM LEVEL 8.9 MG/DL (8.5-10.1); CARBON DIOXIDE LEVEL 29 MMOL/L (20-31); CHLORIDE LEVEL 104 MMOL/L (98-107); CREATININE FOR GFR 0.94 MG/DL (0.55-1.30); GLOMERULAR FILTRATION RATE > 60.0 (>60); GLUCOSE, FASTING 88 MG/DL (60-100); SODIUM LEVEL 141 MMOL/L (136-145); TOTAL PROTEIN 6.7 G/DL (5.7-8.2)
[2024-12-31 16:28] LABS: THYROID STIMULATING HORMONE 1.208 uIU/ML (0.55-4.78)
== END ==
LOC: M LAB REF 15:29
PROVIDERS: ATTEND Nurse Practitioner Family
DX: E66.9 Obesity, unspecified (principal)

== ENCOUNTER → 2025-03-04 | Outpatient (CLI) | payer OTHER | LOC: M RAD 08:37 | PROVIDERS: ATTEND Nurse Practitioner Family | DX: R10.12 Left upper quadrant pain (principal) ==